=== PATIENT | male | born 1985 | race Caucasian/White ===

== ENCOUNTER 2025-02-04 15:13 | Outpatient (OUT) | payer OTHER, SELFPAY ==
--- OUTSIDE RECORDS SUMMARY | 2025-02-04 15:24 | XMS_ITS | Clinical Summary ---
Author Organization [facility] Address [address] [place] [address] Care Team Providers Care Software Configuration Analyst Name Role Phone Unavailable Primary Care Provider Unavailabl e Medications MedicationSigDispense QuantityRefillsLast FilledStart DateEnd DateStatus buPROPion 75 MG tablet Indications:Morbid obesity with body mass index of 50 or higherTake 1 tablet by mouth daily. 30 tablet 5Active Naltrexone 50 MG tablet Indications:Morbid obesity with body mass index of 50 or higherTake 1 tablet by mouth daily. 30 tablet 5Active Active Problems ProblemNoted DateDiagnosed DateMorbid obesity with body mass index of 50 or klxbsl9505/02/2024 Social History Tobacco UseTypesPacks/DayYears UsedDateSmoking Tobacco: NeverSmokeless Tobacco: Never Tobacco Cessation:Counseling Given: Not Answered Alcohol UseStandard Drinks/WeekCommentsYes0 (1 standard drink = 0.6 oz pure alcohol)occasionallySex and Gender InformationValueDate RecordedSex Assigned at BirthNot on fileLegal ZcxCvmn2204/12/2024 9:34 AM ESTGender IdentityNot on file Sexual OrientationNot on file Last Filed Vital Signs Vital SignReadingTime TakenCommentsBlood Brcepmko866/78005/02/2024 8:37 AM EST Twaqr381805/02/2024 8:37 AM ESTTemperature--Respiratory Rate--Oxygen Grornrobxz61% 05/02/2024 8:37 AM ESTInhaled Oxygen Concentration--Zoclns952.4 kg (477 lb) 05/02/2024 8:37 AM YOSBvpxrr543.6 cm (6' 5 )05/02/2024 8:37 AM ESTBody Mass Index56.56005/02/2024 8:37 AM EST Plan of Treatment Health MaintenanceDue DateLast DoneCommentsHEPATITIS C VIRUS SYNHJBXNE10/24/1988 HIV SCREENING MKHVFLGTNU65/24/2003HEP B VACCINE (1 of 3 - 19+ 3-dose series) 2006HPV VACCINE (1 - 3-dose SCDM series)2014COVID-19 VACCINE (3 - 2024- season)502/, 05/10/2021INFLUENZA VACCINE (#1)2024 02/01/2012, 12/22/2010, 02/05/2009, Additional history ridsewAHISVJG92/11/2034 11/19/2023TDAP (ADULT)Vgrjsksbp99/11/2024PNEUMOCOCCAL VACCINE SERIESAged OutNo longer eligible based on patient's age to complete this topic Insurance
--- OUTSIDE RECORDS SUMMARY | 2025-02-04 15:24 | XMS_ITS | Patient Health Record ---
Author Organization [facility] Address [address] [place] [address] Care Team Providers Care Bread Wrapping Machine Feeder Name Role Phone Senait Jaime Primary Care Provider Vasquez Antonio Unavailable [phone] Allergies No Known Allergies Reason For Referral No Information Medications Medication SIG (Take, Route, Frequency, Duration) Notes Start Date End Date Status Mobic 15 mg 1 tab(s) orally once a day for 3 0 days 09/21/2022ctiveMobic 15 mg1 tab(s) orally once a day for 30 days08/24/2022 Active Social History Tobacco Use: Social History Observation Description Date Details (start date - stop date) Never Smoker NA - NA Smoking History Question Answer Notes Smoking Status NonSmoker Problems Problem Type SNOMED Code ICD Code Onset Dates Problem Status W/U Status Risk Notes Problem [id number] 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
--- OUTSIDE RECORDS SUMMARY | 2025-02-04 15:24 | XMS_ITS | Patient Health Record ---
Author Organization [facility] [place] Address [address] [place] [address] Care Team Providers Care Retoucher Name Role Phone Yeni Senait Primary Care Provider [phone] Allergies No Known Allergies Reason For Referral No Information Social History Tobacco Use: Social History Observation Description Date Details (start date - stop date) Never Smoker NA - NA Tobacco Control (Standard) Question Answer Notes Tobacco use: Nonsmoker AUDIT-C (Standard) Question Answer Notes Did you have a drink containing alcohol in the p ast year? Yes How often did you have six or more drinks on one occasion in the past year?Less than monthly (1 point)How many drinks did you have on a typical day when you were drinking in the past year?1 or 2 drinks (0 point)How often did you have a drink containing alcohol in the past year?Monthly or less (1 point)Points2 InterpretationNegative Problems Problem Type SNOMED Code ICD Code Onset Dates Problem Status W/U Status Risk Notes Problem Achilles bursitis (516247386) Achilles te ndinitis, left leg (M76.62) ActiveconfirmedProblemMorbid obesity (153559164)Class 3 obesity (E66.01)Active confirmed Vital Signs Heart Rate 76 /min 06/04/2024 Dyyvpnooyti76.7 degrees Qleqagutaw85/25/9795Wetnurnr41 %06/04/2024lood pressure ffthnlaou81 mm Hg02/04/20257418Erxhhp88 in02/04/2025lood pressure wqpmhaej903 mm Hg 02/04/20258033Prpenp680.2 lbs1MI51.01 kg/m202/04/2025 Encounters Encounter Location Date Provider Diagnosis [facility] [address] [place] [address] 06/04/2024 Senait Jaime Bron[address]itis J[address] [facility] [address] [place] [address] 02/04/2025 Senait Jaime Wellness examination Z00.00 and Class 3 obesity E66.01 Assessments Encounter Date Diagnosis (ICD Code) Assessment Notes Treatment Notes Treatment Clinical Notes Section Notes 06/04/2024 Bronchitis (ICD-10 - J40) fu if not urxwxesdu84/28/2025Wellness examination (ICD-10 - Z00.00)ROS done exam done02/04/2025lass 3 obesity (ICD-10 - E66.01) discussed diet discussed GLP 1s tried adipex in past, didnt tolerate Plan Of Treatment Pending Test Test Name Order Date UA (URINALYSIS, COMPLETE) 02/04/2025 HEMOGLOBIN A1C (GLYCO) 02/04/2025 INSULIN, TOTAL 02/04/2025 LIPID PANEL (CHOL/TRIG/HDL/LDL) 02/05/20 25 URIC ACID 02/04/2025 Urine Culture 02/04/2025 THYROID PANEL (T4/TSH/FREE T3) PSA, SCREENING 02/04/2025 CMP (COMP MET BELTRAN) w/eGFR CKD-EPI 2024 CBC WITH DIFF 02/04/2025 Insurance Providers Payer Name Payer Address Payer Phone Subscriber Number Group Number Insured Name Patient Relationship to Insured Coverage Start Date Coverage End Date O [address] [place], [place] [phone] [id number] Seb Iglesias - patient is the insured
--- OUTSIDE RECORDS SUMMARY | 2025-02-04 15:24 | XMS_ITS | Clinical Summary ---
Author Organization [facility] Address [address] [facility], [address] [place] [address] Care Team Providers Care Meter Repairer Helper Name Role Phone Senait Jaime APRN - ENGINEER CONDUCTOR Primary Care Provide r Allergies No known active allergies Medications MedicationSigDispense QuantityRefillsLast FilledStart DateEnd DateStatus ibuprofen (ADVIL;MOTRIN) 800 MG tablet Take 800 mg by mouth dailyActive furosemide (LASIX) 20 MG tablet Take 1 tablet by mouth as needed (edema) 10 tablet 02/09/2016Active Additional Information Patient not taking.Reported on 11/19/2023 ondansetron (ZOFRAN ODT) 4 MG disintegrating tablet Take 1 tablet by mouth every 8 hours as needed for Nausea or Vomiting 14 tablet 07/02/2018Active Additional Information Patient not taking.Reported on 11/19/2023 Active Problems ProblemNoted DateDiagnosed DateEdema of lower fhyrbiyie75/01/2016Morbid obesity due to excess /01/2016 Immunizations ImmunizationAdministration DatesNext DueTDaP, ADACEL (age 10y-64y), BOOSTRIX (age 10y+), IM, 0.5mL11/19/2023 Social History Tobacco UseTypesPacks/DayYears UsedDateSmoking Tobacco: NeverSmokeless Tobacco: FormerSnuff, ChewQuit: 04/03/2018Alcohol UseStandard Drinks/WeekCommentsYes0 (1 standard drink = 0.6 oz pure alcohol)occAUDIT-CAnswerDate RecordedQ1: How often do you have a drink containing alcohol?2-4 times a month11/19/2023Q2: How many drinks containing alcohol do you have on a typical day when you are drinking?3 or Q3: How often do you have six or more drinks on one occasion?Never 11/19/2023Sex and Gender InformationValueDate RecordedSex Assigned at BirthNot on fileLegal JepAqxq2005/20/2012 11:43 AM ESTGender IdentityNot on fileSexual OrientationNot on fileOccupationIndustryJob Start DateJob End Dateflat rock and CrosswahNot on fileNot on fileNot on file Last Filed Vital Signs Vital SignReadingTime TakenCommentsBlood Bwxrwmgt481/76011/19/2023 6:59 PM EDT Ezexr89438/11/2024 6:59 PM VAGSyalztekgmh66.7 ??C (98.1 ??F)11/19/2023 4:44 PM EDTRespiratory Uttz282611/19/2023 6:59 PM EDTOxygen Dzhipmcxrc99%11/19/2023 6:59 PM EDTInhaled Oxygen Concentration--Uvfjpn826.1 kg (450 lb)11/19/2023 4:44 PM JCHNspqfi970.6 cm (6' 5 )11/19/2023 4:44 PM EDTBody Mass Index53.36011/19/2023 4:44 PM EDT Plan of Treatment Health MaintenanceDue DateLast DoneCommentsDepression Exvxxo1905/03/1999Varicella vaccine (1 of 2 - 13+ 2-dose series)2000HIV nbewhu7805/03/2002Hepatitis C opuryr6705/03/2005Hepatitis B vaccine (1 of 3 - 19+ 3-dose series)2006Flu vaccine (#1)51, 01/28/2008COVID-19 Vaccine ( season), 2DTaP/Tdap/Td vaccine (2 - Td or Tdap) 4Diabetes zfihtuCfgktwinbyzn70/23/2014Hepatitis A vaccineAged Out05/07/2019, 10/29/2018No longer eligible based on patient's age to complete this topicHPV vaccine (No Doses Required)CompletedHib vaccineAged OutNo longer eligible based on patient's age to complete this topicMeningococcal (ACWY) vaccineAged OutNo longer eligible based on patient's age to complete this topic Meningococcal B vaccineAged OutNo longer eligible based on patient's age to complete this topicPneumococcal 0-49 years VaccineAged OutNo longer eligible based on patient's age to complete this topicPolio vaccineAged OutNo longer eligible based on patient's age to complete this topic Procedures Procedure NamePriorityDate/TimeAssociated DiagnosisCommentsHEMOGLOBIN D8XAffozhi 12/31/2013 2:10 PM EDT from Last 3 Months or Most Recently Relevant to Health Maintenance Results * Hemoglobin A1C (12/31/2013 2:10 PM EDT)ComponentValueRef RangeTest Method Analysis TimePerformed AtPathologist SignatureHemoglobin A1C5.14.8 - 5.9 % 12/31/2013 3:44 PM EDTMHPN LABEstimated Avg Hlkcumo492it/dL12/31/2013 3:44 PM EDTMHPN LABComment: The ADA and AACC recommend providing the estimated average glucose result to permit better patient understanding of their HBA1c result. Performed at [address] [place] [address] ([phone] Specimen (Source)Anatomical Location / LateralityCollection Method / Volume Collection TimeReceived Time12/31/2013 2:10 PM EDT12/31/2013 2:11 PM EDT Narrative Authorizing ProviderResult TypeResult StatusAndrew J Gase MDCHEMISTRY ORDERABLES Final ResultPerforming OrganizationAddressCity/State/ZIP CodePhone Number [facility] [address] [place] [address], [facility] [phone] [facility] from Last 3 Months or Most Recently Relevant to Health Maintenance Insurance [address] [place] [address] Care Teams Team MemberRelationshipSpecialtyStart DateEnd Date Senait Jaime, MONORAIL OPERATOR - ENGINEER CONDUCTOR [address] [place] [address] [facility] - [facility]08/10/23
[2025-02-04 16:37] LABS: Alanine Aminotransferase 27 U/L (16-63); Albumin Globulin Ratio 1.0; Albumin Level 4.2 g/dL (3.4-5.0); Alkaline Phosphatase 111 U/L (46-116); Anion Gap 11.9; Aspartate Amino Transferase 19 U/L (15-37); Blood Urea Nitrogen 15.0 mg/dL (7.0-18.0); Calcium 9.3 mg/dL (8.5-10.1); Carbon Dioxide 28.3 mmol/L (21.0-32.0); Chloride 102 mmol/L (98-107); Cholesterol 171 mg/dL (<=200); Estimated GFR (African America >60 (>=60 mL/min/1.73m^2); Estimated GFR (Non-African Ame >60 (>=60 mL/min/1.73m^2); Free T3 2.39 pg/mL (2.18-3.98); Globulin 4.2 g/dL; Glucose 89 mg/dL (74-106); HDL Cholesterol 47 mg/dL (40-60); Potassium 4.2 mmol/L (3.5-5.1); Sodium 138 mmol/L (136-145); Thyroid Stimulating Hormone 4.490 uIU/mL (0.358-3.740); Total Protein 8.4 g/dL (6.4-8.2); Triglycerides 59 mg/dL (<=150); Uric Acid 7.1 mg/dL (3.5-7.2); VLDL CHOLESTEROL 11.8 mg/dL
[2025-02-04 16:52] LABS: Hematocrit 47.3 % (42.0-54.0); Hemoglobin 15.6 g/dL (14.0-18.0); Immature Granulocytes Abs Auto 0.02 10^3/uL (0.00-0.03); Immature Granulocytes Pct Auto 0.2 % (0.0-0.5); Lymphocytes Absolute Auto 1.8 10^3/uL (1.2-3.8); Mean Corpuscular HGB Conc 33.0 g/dL (29.9-35.2); Mean Corpuscular Hemoglobin 29.5 pg (25.9-34.0); Mean Corpuscular Volume 89.6 fL (80.0-94.0); Platelet Count 231 10^3/uL (150-450); Red Blood Count 5.28 10^6/uL (4.70-6.10); White Blood Count 8.3 10^3/uL (4.0-11.0)
[2025-02-04 17:11] LABS: Glucose Urine UA NEGATIVE (NEGATIVE)
[2025-02-04 17:32] LABS: Cast Seen? NONE SEEN #/LPF (NONE SEEN); Crystals Seen? None Seen #/HPF (None Seen)
== END 2025-02-04 15:14 | disposition home or self-care (01) ==
PROVIDERS: PCP Nurse Practitioner Family; Visit Provider Nurse Practitioner Family
DX: Z00.00 Encounter for general adult medical examination without abnormal findings (principal); Z12.5 Encounter for screening for malignant neoplasm of prostate
CPT/HCPCS: 36415; 80053; 80061; 81001; 83036; 83525; 84436; 84443; 84481; 84550; 85025; 87086; G0103

== ENCOUNTER 2025-03-05 14:55 | Outpatient (OUT) | payer OTHER, SELFPAY ==
--- OUTSIDE RECORDS SUMMARY | 2025-03-05 15:01 | XMS_ITS | Clinical Summary ---
Author Organization [facility] Address [address] [place] [address] Care Team Providers Care Sewer Pipe Layer Name Role Phone Unavailable Primary Care Provider [...] with body mass index of 50 or myghwf4905/02/2024 Social History Tobacco UseTypesPacks/DayYears UsedDateSmoking Tobacco: NeverSmokeless Tobacco: Never Tobacco Cessation:Counseling Given: Not Answered Alcohol UseStandard Drinks/WeekCommentsYes0 (1 standard drink = 0.6 oz pure alcohol)occasionallySex and Gender InformationValueDate RecordedSex Assigned at BirthNot on fileLegal FjkIkeh2004/12/2024 9:34 AM ESTGender IdentityNot on file Sexual OrientationNot on file Last Filed Vital Signs Vital SignReadingTime TakenCommentsBlood Urymgywl659/78005/02/2024 8:37 AM EST Ynefs303605/02/2024 8:37 AM ESTTemperature--Respiratory Rate--Oxygen Ogsdzjbkgd12% 05/02/2024 8:37 AM ESTInhaled Oxygen Concentration--Sivpix408.4 kg (477 lb) 05/02/2024 8:37 AM MASFzwvtj112.6 cm (6' 5 )05/02/2024 8:37 AM ESTBody Mass Index56.56005/02/2024 8:37 AM EST Plan of Treatment Health MaintenanceDue DateLast DoneCommentsHEPATITIS C VIRUS NUARLNYDT44/24/1988 HIV SCREENING KPILPFYFOW35/24/2003HEP B VACCINE (1 of 3 - 19+ 3-dose series) 2006HPV VACCINE (1 - 3-dose SCDM series)2014COVID-19 VACCINE (3 - 2024- season)502/, 05/10/2021INFLUENZA VACCINE (#1)2024 02/01/2012, 12/22/2010, 02/05/2009, Additional history witdeyVHALQXN59/11/2034 11/19/2023TDAP (ADULT)Hhbmzfjcv99/11/2024PNEUMOCOCCAL VACCINE SERIESAged OutNo longer eligible based on patient's age to complete this topic Insurance
--- OUTSIDE RECORDS SUMMARY | 2025-03-05 15:01 | XMS_ITS | Clinical Summary ---
Author Organization [facility] Address [address] [facility], [address] [place] [address] Care Team Providers Care E Commerce Manager Name Role Phone Senait Jaime APRN - SLIDE DEVELOPER Primary Care Provide r Allergies No known [...] Active Problems ProblemNoted DateDiagnosed DateEdema of lower /01/2016Morbid obesity due to excess ikbdmeot62/01/2016 Immunizations ImmunizationAdministration DatesNext DueTDaP, ADACEL (age 10y-64y), [...] InformationValueDate RecordedSex Assigned at BirthNot on fileLegal UtuPynk3405/20/2012 11:43 AM ESTGender IdentityNot on fileSexual OrientationNot on fileOccupationIndustryJob Start DateJob End Dateflat rock and CrosswahNot on fileNot on fileNot on file Last Filed Vital Signs Vital SignReadingTime TakenCommentsBlood Yjmtglab499/76011/19/2023 6:59 PM EDT Vzkdi58984/11/2024 6:59 PM NRJBkbcwajqroq77.7 ??C (98.1 ??F)11/19/2023 4:44 PM EDTRespiratory Soui036111/19/2023 6:59 PM EDTOxygen Wwahcysjur20%11/19/2023 6:59 PM EDTInhaled Oxygen Concentration--Yvvufi021.1 kg (450 lb)11/19/2023 4:44 PM XONZawmkv425.6 cm (6' 5 )11/19/2023 4:44 PM EDTBody Mass Index53.36011/19/2023 4:44 PM EDT Plan of Treatment Health MaintenanceDue DateLast DoneCommentsDepression Cncacx0205/03/1999Varicella vaccine (1 of 2 - 13+ 2-dose series)2000HIV giueli2705/03/2002Hepatitis C ismzoj5505/03/2005Hepatitis B vaccine (1 of 3 - 19+ 3-dose series)2006Flu vaccine (#1)51, 01/28/2008COVID-19 Vaccine ( season), 2DTaP/Tdap/Td vaccine (2 - Td or Tdap) 4Diabetes azgtvgGmtbmroycjws39/23/2014Hepatitis A vaccineAged Out05/07/2019, 10/29/2018No longer eligible based [...] complete this topic Procedures Procedure NamePriorityDate/TimeAssociated DiagnosisCommentsHEMOGLOBIN R8UYzcwqox 12/31/2013 2:10 PM EDT from Last 3 Months or Most Recently Relevant to Health Maintenance Results * Hemoglobin A1C (12/31/2013 2:10 PM EDT)ComponentValueRef RangeTest Method Analysis TimePerformed AtPathologist SignatureHemoglobin A1C5.14.8 - 5.9 % 12/31/2013 3:44 PM EDTMHPN LABEstimated Avg Gdpmyzx790ub/dL12/31/2013 3:44 PM EDTMHPN LABComment: The ADA and AACC recommend providing the estimated average glucose result to permit better patient understanding of their HBA1c result. Performed at [address] [place] [address] ([phone] Specimen (Source)Anatomical Location / LateralityCollection Method / Volume Collection TimeReceived Time12/31/2013 2:10 PM EDT12/31/2013 2:11 PM EDT Narrative Authorizing ProviderResult TypeResult StatusAndrew J Gase MDCHEMISTRY ORDERABLES Final ResultPerforming OrganizationAddressCity/State/ZIP CodePhone Number [facility] [address] [place] [address], [facility] [phone] [facility] from Last 3 Months or Most Recently Relevant to Health Maintenance Insurance [address] [place] [address] Care Teams Team MemberRelationshipSpecialtyStart DateEnd Date Senait Jaime, CTC OPERATOR - SLIDE DEVELOPER [address] [place] [address] [facility] - [facility]08/10/23
[2025-03-05 15:53] LABS: Free T3 2.20 pg/mL (2.18-3.98); Thyroid Stimulating Hormone 4.018 uIU/mL (0.358-3.740)
== END 2025-03-05 14:56 | disposition home or self-care (01) ==
LOC: LAB 14:57
PROVIDERS: PCP Nurse Practitioner Family; Visit Provider Nurse Practitioner Family
DX: E05.90 Thyrotoxicosis, unspecified without thyrotoxic crisis or storm (principal)
CPT/HCPCS: 36415; 84436; 84443; 84481